=== PATIENT | female | born 1940 | race Caucasian/White ===

== ENCOUNTER 2016-07-27 08:43 | Day surgery (SDC) | payer MEDICARE, BC ==
--- NOTE | ~2016-07-27 | EGD ---
EGD REPORT [facility] [address] [place] [address] NAME: GENEVIEVE SYLVESTER : [birth year] STATUS : REG SDC PAT#: [id number] AGE: 76 ADM/REG DATE : 07/27/16 MR#: [id number] REPORT SERV DATE: 07/27/16 DICTATED BY: RADHA FRANCIS DATE: 07/27/16 REPORT STATUS : Draft [facility] DATE: 07/27/16 Endoscopy Center Patient Name: Genevieve Sylvester Date of : 1940 Attending MD: JESS FRANCIS MD Procedure Date No Time: 07/27/2016 Procedure: Upper GI endoscopy Indications: Gastro-esophageal reflux disease Referring MD: AMINATA HE Medicines: See the Anesthesia note for documentation of the administered medications Complications: No immediate complications. Estimated blood loss: Minimal. Procedure: Pre-Anesthesia Assessment: - ASA Grade Assessment: II - A patient with mild systemic disease. - Prior to the procedure, a History and Physical was performed, and patient medications and allergies were reviewed. The patient's tolerance of previous anesthesia was also reviewed. The risks and benefits of the procedure and the sedation options and risks were discussed with the patient. All questions were answered, and informed consent was obtained. Prior Anticoagulants: The patient has taken no previous anticoagulant or antiplatelet agents. After reviewing the risks and benefits, the patient was deemed in satisfactory condition to undergo the procedure. After obtaining informed consent, the endoscope was passed under direct vision. Throughout the procedure, the patient's blood pressure, pulse, and oxygen saturations were monitored continuously. The GIF H190 [id number] was introduced through the mouth, and advanced to the second part of duodenum. The upper GI endoscopy was accomplished without difficulty. The patient tolerated the procedure well. Findings: The examined duodenum was normal. The entire examined stomach was normal. The cardia and gastric fundus were normal on retroflexion. Diffuse mild erythema was found at the gastroesophageal junction. Biopsies were taken with a cold forceps for histology. No other significant abnormalities were identified in a careful examination of the esophagus. EGD REPORT [address] [address] NAME: GENEVIEVE SYLVESTER : [birth year] STATUS : REG [facility]#: [id number] AGE: 76 ADM/REG DATE : 07/27/16 MR#: [id number] REPORT SERV DATE: 07/27/16 DICTATED BY: RADHA FRANCIS DATE: 07/27/16 REPORT STATUS : Draft TRANSCRIBED BY: [employer] DATE: 07/27/16 Impression: - Normal examined duodenum. - Normal stomach. - Erythema at the gastroesophageal junction. Biopsied. Recommendation: - Patient has a contact number available for emergencies. The signs and symptoms of potential delayed complications were discussed with the patient. Return to normal activities tomorrow. Written discharge instructions were provided to the patient. - Regular diet. - Discharge patient to home. - Continue present medications. - Await pathology results. Procedure Code(s): --- Professional --- 85172, Esophagogastroduodenoscopy, flexible, transoral; with biopsy, single or multiple Diagnosis Code(s): --- Professional --- K22.9, Disease of esophagus, unspecified K21.9, Gastro-esophageal reflux disease without esophagitis CPT copyright 2013 [employer]. All rights reserved. The codes documented in this report are preliminary and upon death surveys coder review may be revised to meet current compliance requirements. JESS FRANCSI MD 07/27/2016 10:23 AM This report has been signed electronically. Number of Addenda: 0 Note Initiated On: 07/27/2016 10:13 AM Scope Withdrawal Time 0 hours 0 minutes 0 seconds [id number] [id number]
--- NOTE | ~2016-07-27 | EGD ---
EGD REPORT [facility] [address] [address] NAME: GENEVIEVE SYLVESTER : 36 STATUS : REG SDC PAT#: [id number] AGE: 76 ADM/REG DATE : 07/27/16 MR#: [id number] REPORT SERV DATE: 07/27/16 DICTATED BY: RADHA FRANCIS DATE: 07/27/16 REPORT STATUS : Draft [facility]: [facility] DATE: 07/27/16 Endoscopy Center Patient Name: Genevieve Sylvester Date of : 1940 Attending MD: JESS FRANCIS MD Procedure Date No Time: 07/27/2016 Procedure: Colonoscopy Indications: Screening in patient at increased risk: Colorectal cancer in mother 60 or older, Last colonoscopy: August 2012 Referring MD: AMINATA HE Medicines: See the Anesthesia note for documentation of the administered medications Complications: No immediate complications. Estimated blood loss: None. Procedure: Pre-Anesthesia Assessment: - ASA Grade Assessment: II - A patient with mild systemic disease. - Prior to the procedure, a History and Physical was performed, and patient medications and allergies were reviewed. The patient's tolerance of previous anesthesia was also reviewed. The risks and benefits of the procedure and the sedation options and risks were discussed with the patient. All questions were answered, and informed consent was obtained. Prior Anticoagulants: The patient has taken no previous anticoagulant or antiplatelet agents. After reviewing the risks and benefits, the patient was deemed in satisfactory condition to undergo the procedure. After I obtained informed consent, the scope was passed under direct vision. Throughout the procedure, the patient's blood pressure, pulse, and oxygen saturations were monitored continuously. The PCF [id number] was introduced through the anus and advanced to the cecum, identified by appendiceal orifice and ileocecal valve. The ileocecal valve, appendiceal orifice and rectum were photographed. The entire colon was examined. The colonoscopy was performed without difficulty. The patient tolerated the procedure well. The quality of the bowel preparation was adequate. Findings: The perianal and digital rectal examinations were normal. Multiple medium-mouthed diverticula were found in the sigmoid colon and in the descending colon. Non-bleeding internal hemorrhoids were found during retroflexion and were Grade I (internal hemorrhoids that do not prolapse). EGD REPORT [place] [id number] [facility] [place]. [address] NAME: GENEVIEVE SYLVESTER : [birth year] STATUS : REG [facility]#: [id number] AGE: 76 ADM/REG DATE : 07/27/16 MR#: [id number] REPORT SERV DATE: 07/27/16 DICTATED BY: RADHA FRANCIS DATE: 07/27/16 REPORT STATUS : Draft TRANSCRIBED BY: [facility] DATE: 07/27/16 No other significant abnormalities were identified in a careful examination of the remainder of the colon. Impression: - Diverticulosis in the sigmoid colon and in the descending colon. - Non-bleeding internal hemorrhoids. Recommendation: - Patient has a contact number available for emergencies. The signs and symptoms of potential delayed complications were discussed with the patient. Return to normal activities tomorrow. Written discharge instructions were provided to the patient. - High fiber diet indefinitely. - Discharge patient to home. - Continue present medications. - Repeat colonoscopy is not recommended for surveillance. Procedure Code(s): --- Professional --- 77679, Colonoscopy, flexible, proximal to splenic flexure; diagnostic, with or without collection of specimen(s) by brushing or washing, with or without colon decompression (separate procedure) Diagnosis Code(s): --- Professional --- K64.0, First degree hemorrhoids K57.30, Diverticulosis of large intestine without perforation or abscess without bleeding Z12.11, Encounter for screening for malignant neoplasm of colon Z80.0, Family history of malignant neoplasm of digestive organs CPT copyright 2013 [employer]. All rights reserved. The codes documented in this report are preliminary and upon road machine runner review may be revised to meet current compliance requirements. JESS FRANCIS MD 07/27/2016 10:38 AM This report has been signed electronically. Number of Addenda: 0 Note Initiated On: 07/27/2016 10:22 AM Scope Withdrawal Time 0 hours 6 minutes [address] [facility] [address] [address] NAME: GENEVIEVE SYLVESTER [place] : 36 STATUS : REG [facility] PAT#: [id number] AGE: 76 ADM/REG DATE : 07/27/16 MR#: [id number] REPORT SERV DATE: 07/27/16 DICTATED BY: RADHA FRANCIS DATE: 07/27/16 REPORT STATUS : Draft TRANSCRIBED BY: [employer] [facility] DATE: 07/27/16 [facility] [address] [id number]
[~2016-07-27 08:43] MED LIST: ALEVE220 MG PO; AMOXIL500C PO; CALICUM PO; CRANBERRY CAP PO; CRANBERRY1 TAB OR; FISH-EPA1000 MG PO; LUTEIN PO; MULTIPLE VIT PO; MURO1285% OPH; NAC PO; NEXIUM20 M1 PO; NEXIUM40 PO; PRILO PO; PROAIR HFA INH; PROBIOTIC; SYN1 PO; SYSTANE OPH; TUMSROLL PO; VITAMIN B-121000 MC1 SL; VITAMIN D1000 UNI1 PO; VITC500 PO; ZYRTEC ALLGY10 MG PO; [UNRECOGNIZED DRUG - OTHER] PO; [UNRECOGNIZED DRUG - OTHER] PO; [UNRECOGNIZED DRUG - OTHER] PO; [UNRECOGNIZED DRUG - OTHER] PO
== END 2016-07-27 23:59 | disposition home or self-care (01) ==
LOC: DMU 08:43
PROVIDERS: Internal Medicine Gastroenterology
PROC: 0DJD8ZZ Inspection of Lower Intestinal Tract, Via Natural or Artificial Opening Endoscopic (ICD-10-PCS; principal; 2016-07-27 10:00)
PROC: 0DB48ZX Excision of Esophagogastric Junction, Via Natural or Artificial Opening Endoscopic, Diagnostic (ICD-10-PCS; 2016-07-27 10:00)
DX: Z12.11 Encounter for screening for malignant neoplasm of colon (principal); K64.0 First degree hemorrhoids; K57.30 Diverticulosis of large intestine without perforation or abscess without bleeding; K21.9 Gastro-esophageal reflux disease without esophagitis; E03.9 Hypothyroidism, unspecified; J45.909 Unspecified asthma, uncomplicated; Z88.8 Allergy status to other drugs, medicaments and biological substances; Z79.899 Other long term (current) drug therapy; Z80.0 Family history of malignant neoplasm of digestive organs; Z98.890 Other specified postprocedural states; Z96.653 Presence of artificial knee joint, bilateral; Z98.49 Cataract extraction status, unspecified eye
CPT/HCPCS: 43239; G0105; 88305